=== PATIENT | female | born 1940 | race Two or more races ===

== ENCOUNTER 2023-02-15 11:19 | Inpatient (IN) | payer OTHER ==
[~2023-02-15] VITALS: Ht 157.5 cm; Wt 54.4 kg
[~2023-02-15 11:19] MED LIST: ACTOS15 MG PO; GLIMEPIRIDE4 M1 PO; GLUMETZA500 MG PO; HEMATOGEN FORT1 EACH PO; HYDRALAZINE HCL25 MG PO; ISOSORBIDE DINI30 MG PO; NORVASC10 MG PO
--- NOTE | 2023-02-15 11:39 | NUR ---
SE RECIBE PT ALERTA Y ORIENTADA X3 CUAL PRESENTA PRUEBA DE LABORATORIO CON HEMOGLOBINA EN 6.6 G/DL ESTA MANANA. PTE REFIERE DEBILIDAD Y CANSANCIO. SE VIELKA S/V Y SE UBICA.
[2023-02-15] MEDS ORDERED: ROSUVASTATIN CA20 MG PO (11:42)
[2023-02-15] MEDS ORDERED: COZAAR100 MG PO (11:42)
--- NOTE | 2023-02-15 12:10 | NUR ---
PTE EVALUADA POR EL DORI JAQUEZ QUIE ORDENA TRATAMIENTO LA CUAL SE EJECUTA POR MS.C.DIAZ DODSON. SE MANTIENE BAJO OBSERVACION.
--- NOTE | 2023-02-15 13:14 | NUR ---
12:30 PM SE COLECTAN TUBOS PILOTOS PARA REQUISAR UNIDADES DE GUILLERMINA JANAY ORDEN MEDICA. 1:00PM SE LLAMA A BANCO DE GUILLERMINA PARA CORROBORAR RECORD DE PTE Y PERSONAL DE TURNO (MS. SOTO) INDICA QUE PTE POSEE RECORD PREVIO. 1:09PM SE ENTREGAN TUBOS PILOTOS EN EL BANCO DE GUILLERMINA PARA REQUISAR 4 UNIDADES DE PRBC FRACCIONADAS, RECIBIDOS POR . 1:18PM FAMILIAR DE PTE (MELISSA) FIRMA CONSENTIMIENTO PARA TRANSFUSION DE GUILLERMINA Y SE ADJUNTA A RECORD.
--- NOTE | 2023-02-15 15:03 | NUR ---
SE RECIBE PACIENTE DEL TURNO ANTERIOR, LA MISMA SE ENCUENTRA ALAERTA Y ORIENTADA X3, SE LE ORIENTA A PACIENTE SOBRE CONTINUIDAD DE TRATAMIENTO Y VEBRALIZA ENTENDER, PACIENTE EN CAMA CON BARANDAS ELEVADAS, RECIBIENDO IV FLUIDS JANAY ORDEN. CANALIZADA X2. PENDIENTE ENTREGA DE U/A Y CONSULTA CON DR LCOK.
--- NOTE | 2023-02-15 16:29 | NUR ---
SE LLAMA A ALIRIO PERSONAL DE LABORATORIO QUIEN INDICA QUE AUN NO A LLEGADO UNIDADES PENDIENTES DEL PACIENTE [facility]
[2023-02-21] MEDS ORDERED: GABAPENTIN100 M2 (15:39)
[2023-02-21] MEDS ORDERED: DICLOFENAC SODI75 MG (15:39)
[2023-02-21] MEDS ORDERED: FARXIGA5 MG (15:39)
== END 2023-03-02 13:42 | disposition home or self-care (01) | DRG 330 ==
LOC: ER 11:19 → MEDJ 17:10 → SURG 02-21 20:15 → SURH 02-25 21:57 → SURG 02-25 21:58
PROVIDERS: Surgery; ADMIT Internal Medicine; ATTEND Internal Medicine
PROC: 30233N1 Transfusion of Nonautologous Red Blood Cells into Peripheral Vein, Percutaneous Approach (ICD-10-PCS; 2023-02-15)
PROC: BW24ZZZ Computerized Tomography (CT Scan) of Chest and Abdomen (ICD-10-PCS; 2023-02-17)
PROC: B24BZZZ Ultrasonography of Heart with Aorta (ICD-10-PCS; 2023-02-19)
PROC: 0DBK8ZX Excision of Ascending Colon, Via Natural or Artificial Opening Endoscopic, Diagnostic (ICD-10-PCS; 2023-02-20)
PROC: 07BB4ZZ Excision of Mesenteric Lymphatic, Percutaneous Endoscopic Approach (ICD-10-PCS; 2023-02-21)
PROC: 0DTF4ZZ Resection of Right Large Intestine, Percutaneous Endoscopic Approach (ICD-10-PCS; principal; 2023-02-21 20:45)
DX: C18.0 Malignant neoplasm of cecum (principal); I50.30 Unspecified diastolic (congestive) heart failure; K57.30 Diverticulosis of large intestine without perforation or abscess without bleeding; D64.9 Anemia, unspecified; E11.65 Type 2 diabetes mellitus with hyperglycemia; Z79.4 Long term (current) use of insulin; I25.10 Atherosclerotic heart disease of native coronary artery without angina pectoris; Z95.1 Presence of aortocoronary bypass graft; I11.0 Hypertensive heart disease with heart failure; R33.8 Other retention of urine

== ENCOUNTER 2023-03-07 20:17 | Emergency (ER) | payer OTHER ==
[~2023-03-07] VITALS: Ht 157.5 cm; Wt 48.1 kg
[~2023-03-07 20:17] MED LIST changes: +COZAAR100 MG PO; +DICLOFENAC SODI75 MG; +FARXIGA5 MG; +GABAPENTIN100 M2; +ROSUVASTATIN CA20 MG PO
[2023-03-07] MEDS ORDERED: GLUMETZA500 MG (20:32)
[2023-03-07] MEDS ORDERED: ACTOS15 MG (20:32)
[2023-03-07] MEDS ORDERED: FARXIGA5 MG PO (20:33)
[2023-03-08] MEDS ORDERED: CEPHALEXIN500 MG PO (02:20)
== END 2023-03-08 02:59 ==
LOC: ER 20:17
DX: S00.03XA Contusion of scalp, initial encounter (principal); W18.39XA Other fall on same level, initial encounter; Y93.89 Activity, other specified; Y92.012 Bathroom of single-family (private) house as the place of occurrence of the external cause; D64.9 Anemia, unspecified; I10 Essential (primary) hypertension; N39.0 Urinary tract infection, site not specified

== ENCOUNTER 2023-09-11 16:26 | Emergency (ER) | payer OTHER ==
[~2023-09-11] VITALS: Ht 162.6 cm; Wt 65.8 kg
[~2023-09-11 16:26] MED LIST changes: +ACTOS15 MG; +CEPHALEXIN500 MG PO; +FARXIGA5 MG PO; +GLUMETZA500 MG
[2023-09-11 19:51] LABS: HEMATOCRIT 39.7 % (36.0-45.00); HEMOGLOBIN 13.4 g/dL (12.0-15.00); MEAN CELL VOLUME 87.5 fL (80.00-100.00); MEAN CORPUSCULAR HEMOGLOBIN 29.6 pg (27.00-32.0); MEAN CORPUSCULAR HGB CONC 33.8 g/dl (32.0-36.0); PLATELET COUNT 236 K/uL (150-450); RED BLOOD COUNT 4.53 M/uL (4.00-6.00); RED CELL DISTRIBUTION WIDTH 14.2 % (11.5-14.5)
[2023-09-11 19:52] LABS: URINE APPEARANCE Clear; URINE BILIRRUBIN Negative (NEGATIVE); URINE BLOOD Trace; URINE COLOR Yellow; URINE LEUKOCYTE Negative; URINE NITRATE Negative; URINE UROBILINOGEN 0.2 E.U./dl
[2023-09-11 19:53] LABS: URINE BACTERIA 95.5 uL (0.0-1933); URINE EPITHELIAL CELLS 2.9 uL (0.0-38.8); URINE RBC 3.7 uL (0.0-20.8)
[2023-09-11 20:03] LABS: URINE GLUCOSE >=1000 MG/DL (NEGATIVE); URINE PROTEIN 100 (NEGATIVE); URINE WBC 1.2 uL (0.0-23.2)
[2023-09-11 20:08] LABS: INR 1.01; PARTIAL THROMBOPLASTIN TIME 22.6 SECONDS (22.0-34.0); PROTHROMBIN TIME 10.6 SECONDS (9.0-11.5)
[2023-09-11 20:12] LABS: CALCIUM 10.5 mg/dL (8.5-10.1); CREATININE SERUM 0.98 mg/dL (0.55-1.02); GFR 53.94; POTASSIUM 3.89 mEq/L (3.5-5.1)
== END 2023-09-11 21:31 | disposition home or self-care (01) ==
LOC: ER 16:26
PROVIDERS: General Practice
DX: S00.83XA Contusion of other part of head, initial encounter (principal); W18.39XA Other fall on same level, initial encounter; Y93.89 Activity, other specified; Y92.018 Other place in single-family (private) house as the place of occurrence of the external cause; E11.9 Type 2 diabetes mellitus without complications; Z79.84 Long term (current) use of oral hypoglycemic drugs; Z95.1 Presence of aortocoronary bypass graft; E78.00 Pure hypercholesterolemia, unspecified; I10 Essential (primary) hypertension

== ENCOUNTER 2024-04-24 07:36 | Outpatient (CLI) | payer OTHER | END 2024-04-24 07:47 | disposition home or self-care (01) | LOC: TOM 07:36 | PROVIDERS: ATTEND Internal Medicine | DX: R10.30 Lower abdominal pain, unspecified (principal); K57.92 Diverticulitis of intestine, part unspecified, without perforation or abscess without bleeding | CPT/HCPCS: 74178; Q9965 ==